=== PATIENT | female | born 1990 | race Caucasian/White ===

== ENCOUNTER 2016-10-30 18:17 | Emergency (ER) | payer MEDICAID ==
[~2016-10-30] VITALS: Ht 162.6 cm; Wt 68.0 kg
[~2016-10-30 18:17] MED LIST: IBUP-22
[2016-10-30 22:30] VITALS: BP 118/73
[2016-10-30] MEDS ORDERED: ACETAMINOPHEN 325MG TABLET PO STA (23:56)
== END 2016-10-31 02:30 | disposition home or self-care (01) ==
LOC: ER 21:56
DX: H92.01 Otalgia, right ear (principal); Z79.1 Long term (current) use of non-steroidal anti-inflammatories (NSAID)
CPT/HCPCS: 99283

== ENCOUNTER 2018-09-26 08:35 | Emergency (ER) | payer MEDICAID, OTHER ==
[~2018-09-26] VITALS: Ht 162.6 cm; Wt 70.0 kg
[2018-09-26 08:42] VITALS: BP 115/69
[2018-09-26] MEDS ORDERED: TETANUS, DIPHTHERIA, PERTUSSIS VAC/PF 0.5ML (>7YR OLD) IM ONE (10:15)
[2018-09-26] MEDS ORDERED: BACITRACIN ZINC OINT UDPKT TOP ONE (10:15)
== END 2018-09-26 12:03 | disposition home or self-care (01) ==
LOC: ER 08:35
DX: S91.312A Laceration without foreign body, left foot, initial encounter (principal); W45.8XXA Other foreign body or object entering through skin, initial encounter; Y93.89 Activity, other specified; Y92.89 Other specified places as the place of occurrence of the external cause
CPT/HCPCS: 73630; 90715; 99283; Z7610